=== PATIENT | female | born 1955 | race Caucasian/White ===

== ENCOUNTER → 2017-03-27 | Outpatient (CLI) | payer BC ==
[~2017-03-27] MED LIST: ACIDOPHILUS100 MG PO; ALEN70TA47 PO; ALPR.25T PO; AZIT-21 PO; CLCX200C PO; ESTR0.755 PO; LACTAID9000 UNIT PO; MTX2.5T PO; OMEP20CA12 PO; PROP1TAB77; SCR1T PO; SLMFT1E INH; SMT80CT PO; TRAZ150T42 PO; TRZ50T; [UNRECOGNIZED DRUG - OTHER]; estrogen; ventolin inhaler INH
--- NOTE | 2017-03-27 15:12 | Diagnostic Imaging Report ---
INDICATION: Pain, swelling, and redness status post recent injury. COMPARISON: None. FINDINGS: Three views of the left foot demonstrate no acute fracture or dislocation. There are no focal osseous lesions. There is no soft tissue swelling. There are degenerative changes with mild subluxation of the fourth proximal interphalangeal joint space. Joint spaces are otherwise maintained. No radiopaque foreign bodies are seen. IMPRESSION: 1. No acute fracture or dislocation of the left foot. Dictated by: Dictated on workstation # [id number]
== END ==
LOC: RAD 14:52
PROVIDERS: ATTEND Internal Medicine
DX: M79.672 Pain in left foot (principal)
CPT/HCPCS: 73630

== ENCOUNTER 2017-07-13 14:00 | Observation (INO) | payer BC ==
[~2017-07-13] VITALS: Ht 170.2 cm; Wt 54.9 kg
[2017-07-13] MEDS ORDERED: METH2.5T (14:46)
[2017-07-13] MEDS ORDERED: FOLI1TAB24 PO (14:46)
[2017-07-13] MEDS ORDERED: ALPR0.254 (14:46)
[2017-07-13] MEDS ORDERED: ESTR0.755 (14:46)
[2017-07-13] MEDS ORDERED: OXYC-471 PO (14:46)
[2017-07-13] MEDS ORDERED: TRAZ100T92 PO (14:46)
[2017-07-13] MEDS ORDERED: fentaNYL INJECTION 100 MCG/2 ML AMP IVP STA (15:13)
--- NOTE | 2017-07-13 15:14 | Diagnostic Imaging Report ---
Clinical indication: Patient fell on right shoulder this morning while letting to dog out. Exams: 1: X-ray of the right humerus, 2 views. 2: X-ray of the right shoulder, 3 views. Comparison: X-ray of the right shoulder dated 02/15/2007. Findings: X-ray of the right shoulder and right humerus shows a comminuted impacted fracture of the proximal humeral metaphysis and humeral head region. There is concern for intra-articular extension. There is at least one half shaft width of anterior displacement of the distal fracture fragment. The humeral head is slightly inferior this may be related to joint effusion. There is no other fracture or dislocation seen. There is side plate and screws internally fixing the healed right clavicle. Impression: 1: There is a comminuted intra-articular fracture involving the right proximal humeral head/neck junction region. 2: There is pseudosubluxation of the right glenohumeral joint, likely related to joint effusion. Dictated by: Dictated on workstation # [id number]
--- NOTE | 2017-07-13 15:20 | ED Upper Extremity ---
General Chief Complaint: Upper Extremity Stated Complaint: R ARM/SHOULDER PAIN POSS BREAK Nursing Triage Note: ADM TO ED C/O R SHOULDER PAIN. REPORTS APX 12 HRS AGO WAS BENDING OVER TO FILL DOG BOWEL FELL ON OVER ON R SHOULDER. SWELLING AND BRUSING TO SHOULDER Nursing Sepsis Screen: No Definite Risk History of Present Illness Time seen by provider: 15:05 Initial Comments Patient reports approximately 12 hours ago she was leaning over to get food and water for her dog when she fell forward landing on her right shoulder. She has a previous history of a right clavicle fracture with ORIF in 2006. She denies any head injury or any other complaints of pain related to the fall other than the right shoulder. He has long-standing history of RA and OA. At 09 100 she had 400 mg of ibuprofen and coffee Onset: this morning Pain/Injury Location: right shoulder, right arm (proximal) Method of Injury: fell Modifying Factors: Improves With Pain Medication, Improves With Rest Allergies and Home Medications Allergies Coded Allergies: codeine (Verified Allergy, Unknown, NAUSEA & VOMITING, 03/12/07) hydrocodone (Verified Allergy, Unknown, NAUSEA, 07/13/17) Home Medications Alendronate Sodium 70 Mg Tablet, 70 MG PO weekly, (Reported) 1 TAB WEEKLY ON SATURDAYS Alprazolam 0.25 Mg Tablet, 0.25-0.5 MG PO HS PRN, (Reported) 1-2 TABS PRN ANXIETY Alprazolam 0.25 Mg Tablet, (Reported) Estropipate 0.75 Mg Tablet, 0.625 MG PO DAILY, (Reported) Estropipate 0.75 Mg Tablet, (Reported) Folic Acid 1 Mg Tablet, (Reported) Lactase 9,000 Unit Tab.chew, 9,000 UNIT PO, (Reported) TAKE BEFORE EATING DAIRY Methotrexate 2.5 Mg Tab, 2.5 MG PO Q7D, (Reported) 10 TABS WEEKLY ON SATURDAY Methotrexate Sodium 2.5 Mg Tablet, (Reported) Omeprazole 20 Mg Capsule.dr, 20 MG PO BID, (Reported) BEFORE MEALS Oxycodone HCl/Acetaminophen 1 Each Tablet, (Reported) Simethicone 80 Mg Chew, 80 MG PO NEEDED, (Reported) PRN GAS Trazodone HCl 100 Mg Tablet, (Reported) Trazodone Hcl 150 Mg Tablet, 100 MG PO HS, (Reported) [ventolin inhaler] , 90 MCG INH Q4H PRN, (Reported) 2 puffs q4 prn SHORTNESS OF BREATH Constitutional: no symptoms reported, see HPI Musculoskeletal: see HPI, joint pain, joint swelling, muscle pain, No neck pain Past Mmcfgaj-Bdlyqx-Ptismm Hx Patient Social History Alcohol Use: Occasionally Uses Recreational Drug Use: No Smoking Status: Current Everyday Smoker (1 pack per day) Recent Foreign Travel: No Contact w/Someone Who Travel: No Recent Infectious Disease Expo: No Recent Hopitalizations: Yes Surgeries History of Surgeries: Yes (hysterectomy 98,[id number]) Respiratory History of Respiratory Disorde: Yes Cardiovascular History of Cardiac Disorders: Yes Neurological History of Neurological Disord: No Reproductive System Hx Reproductive Disorders: No Gastrointestinal History of Gastrointestinal Di: No Musculoskeletal History of Musculoskeletal Dis: Yes (herniated disks) Endocrine History of Endocrine Disorders: No Psychosocial History of Psychiatric Problem: No Blood Transfusions History of Blood Disorders: No Reviewed Nursing Assessment Reviewed/Agree w Nursing PMH: Yes Physical Exam Vital Signs Vital Sign - Last 12Hours 07/13/17 14:21 Temp 97.0 Pulse 83 Resp 18 B/P (MAP) 142/59 Pulse Ox 96 O2 Delivery Room Air Capillary Refill : Less Than 3 Seconds General Appearance: WD/WN, no apparent distress HEENT: PERRL/EOMI, normal ENT inspection, TMs normal, pharynx normal Neck: non-tender, full range of motion, supple, normal inspection Cardiovascular: normal peripheral pulses, regular rate, rhythm, no edema, no murmur Respiratory: chest non-tender, lungs clear Gastrointestinal: normal bowel sounds, non tender, soft, no organomegaly Back: normal inspection, no CVA tenderness, no vertebral tenderness Shoulder: bone tenderness (proximal right shoulder and humerus), deformity, ecchymosis, limited ROM, pain, soft tissue tenderness, swelling Elbow/Forearm: normal inspection, non-tender, Right Hand: normal inspection, non-tender, Right Neurologic/Psychiatric: no motor/sensory deficits, alert, normal mood/affect, oriented x 3 Skin: normal color, warm/dry Comments Neurovascular status intact right upper extremity symmetric with the left. Progress/Results/Core Measures Results/Orders My Orders Orders - BEATA GILLIS Shoulder, Right, 3 Views (07/13/17 14:29) Humerus, Right, 2 Views (07/13/17 14:29) Saline Lock/Iv-Start (07/13/17 15:13) Fentanyl Injection (Sublimaze Injection (07/13/17 15:13) Alprazolam Tablet (Xanax Tablet) (07/13/17 16:10) Vital Signs/I&O Vital Sign - Last 12Hours 07/13/17 14:21 Temp 97.0 Pulse 83 Resp 18 B/P (MAP) 142/59 Pulse Ox 96 O2 Delivery Room Air Blood Pressure Mean: 86 Progress Note : Progress Note 1505 reviewed x-ray results with the patient and her boyfriend, will consult orthopedics and make plans from there. Fentanyl 50 g IV for pain. [address] Brower, reviewed x-ray and recommended conservative treatment. If she needs surgery in the future would be a head replacement on a elected basis. Recommended admission for pain control. [address] Byod, agreed to accept patient for observation admission. Agent reporting anxiety, Xanax 0.5 mg by mouth Diagnostic Imaging Diagonstic Imaging: Xray Plain Films/CT/US/NM/MRI: other (humerus and shoulder, right) Comments NAME: JOSE MIGUEL CURRAN [facility] REC#: [id number] PT STATUS: REG ER : 1955 PHYSICIAN: BEATA GILLIS ADMIT DATE: 07/13/17/ER Signed Date of Exam: 07/13/17 HUMERUS, RIGHT, 2 VIEWS Clinical indication: Patient fell on right shoulder this morning while letting to dog out. Exams: 1: X-ray of the right humerus, 2 views. 2: X-ray of the right shoulder, 3 views. Comparison: X-ray of the right shoulder dated 02/15/2007. Findings: X-ray of the right shoulder and right humerus shows a comminuted impacted fracture of the proximal humeral metaphysis and humeral head region. There is concern for intra-articular extension. There is at least one half shaft width of anterior displacement of the distal fracture fragment. The humeral head is slightly inferior this may be related to joint effusion. There is no other fracture or dislocation seen. There is side plate and screws internally fixing the healed right clavicle. Impression: 1: There is a comminuted intra-articular fracture involving the right proximal humeral head/neck junction region. 2: There is pseudosubluxation of the right glenohumeral joint, likely related to joint effusion. Dictated by: Dictated on workstation # [id number] Dict: 07/13/17 1504 Trans: 07/13/17 1512 Interpreted by: JANE DON MD Electronically signed by: JANE DON MD 07/13/17 1512 Reviewed: Reviewed by Me Departure Impression Impression: Primary Impression: Proximal humerus fracture Qualified Codes: S42.291A - Other displaced fracture of upper end of right humerus, initial encounter for closed fracture Additional Impression: Pain in right shoulder Qualified Codes: M25.511 - Pain in right shoulder Disposition: ADMITTED INPATIENT Condition: Stable Admissions Decision to Admit Reason: Admit from ER (General) Decision to Admit/Date: Jul 13, 2017 Time/Decision to Admit Time: 15:25 Departure-Patient Inst. Referrals: VIRGIE STOKES MD (PCP/Family) Primary Care Physician Copy Copies To 1: VIRGIE STOKES MD, AMY ARNP Jul 13, 2017 15:20
[2017-07-13] MEDS ORDERED: ALPRAZolam 0.5 MG (XANAX) TAB PO STA (16:10)
[2017-07-13 16:59] VITALS: BP 142/59
[2017-07-13] MEDS ORDERED: ONDANSETRON 4 MG/2 ML (SDV) Z0FRAN IV PRN (17:00)
[2017-07-13] MEDS ORDERED: CATHETER FLUSH 10 ML SYR IV PRN (17:00)
[2017-07-13] MEDS: fentaNYL INJECTION 100 MCG/2 ML AMP IV PRN (17:15)
[2017-07-13] MEDS: NS IV 1000 ML 1,000 ML IV SCH (17:15)
[2017-07-13] MEDS ORDERED: RT-ALBUTEROL SULF 2.5 MG/3 ML PRE-MIX VIAL IH PRN (17:15)
[2017-07-13] MEDS ORDERED: PRED5TAB PO (17:43)
[2017-07-13] MEDS ORDERED: DULO60CA6 PO (17:43)
[2017-07-13] MEDS ORDERED: RT-ALBUINH IH (17:43)
[2017-07-13] MEDS ORDERED: GABA-488 PO (17:46)
[2017-07-13 19:03] VITALS: BP 138/63
--- NOTE | 2017-07-13 19:07 | Consultation ---
History of Present Illness History of Present Illness Patient Consulted On(misty/time) 07/13/17 18:56 Date Seen by Provider: Jul 13, 2017 Time Seen by Provider: 18:56 Reason for Visit: Right shoulder humeral head fracture. History of Present Illness She was getting water for her dogs at 2am when she fell forward onto her shoulder. She could not move for 2 hours, she reports. She arrived at the ED earlier this afternoon. Allergies and Home Medications Allergies Coded Allergies: Penicillins (Verified Allergy, Unknown, 07/13/17) codeine (Verified Allergy, Unknown, NAUSEA & VOMITING, 03/12/07) hydrocodone (Verified Allergy, Unknown, NAUSEA, 07/13/17) Home Medications Albuterol Sulfate 1 Puff Puff, 1 INHALER INH, (Reported) Alendronate Sodium 70 Mg Tablet, 70 MG PO weekly, (Reported) 1 TAB WEEKLY ON SATURDAYS Alprazolam 0.25 Mg Tablet, 0.25-0.5 MG PO HS PRN, (Reported) 1-2 TABS PRN ANXIETY Duloxetine HCl 60 Mg Capsule.dr, 60 MG PO DAILY, (Reported) Estropipate 0.75 Mg Tablet, 0.625 MG PO DAILY, (Reported) Folic Acid 1 Mg Tablet, 1 MG PO DAILY, (Reported) Gabapentin 300 Mg Capsule, 300 MG PO TID, (Reported) Lactase 9,000 Unit Tab.chew, 9,000 UNIT PO, (Reported) TAKE BEFORE EATING DAIRY Methotrexate 2.5 Mg Tab, 2.5 MG PO Q7D, (Reported) 10 TABS WEEKLY ON SATURDAY Omeprazole 20 Mg Capsule.dr, 20 MG PO BID, (Reported) BEFORE MEALS Oxycodone HCl/Acetaminophen 1 Each Tablet, (Reported) Prednisone 5 Mg Tablet, 10 MG PO DAILY, (Reported) Simethicone 80 Mg Chew, 80 MG PO NEEDED, (Reported) PRN GAS Trazodone HCl 100 Mg Tablet, 100 MG PO DAILY, (Reported) [ventolin inhaler] , 90 MCG INH Q4H PRN, (Reported) 2 puffs q4 prn SHORTNESS OF BREATH Past Iknlcxg-Dunqli-Iwvikp Hx Patient Social History Alcohol Use: Occasionally Uses Alcohol Beverage of Choice: Beer Recreational Drug Use: No Smoking Status: Current Everyday Smoker Type Used: Cigarettes Recent Foreign Travel: No Contact w/Someone Who Travel: No Recent Infectious Disease Expo: No Recent Hopitalizations: Yes Surgeries History of Surgeries: Yes (hysterectomy 98,appy73) Respiratory History of Respiratory Disorde: Yes Respiratory Disorders: COPD Cardiovascular History of Cardiac Disorders: Yes Neurological History of Neurological Disord: No Reproductive System Hx Reproductive Disorders: No Gastrointestinal History of Gastrointestinal Di: No Musculoskeletal History of Musculoskeletal Dis: Yes (herniated disks) Endocrine History of Endocrine Disorders: No Psychosocial History of Psychiatric Problem: No Blood Transfusions History of Blood Disorders: No Reviewed Nursing Assessment Reviewed/Agree w Nursing PMH: Yes Family Medical History Family Medial History: Neoplasm G8 BROTHER Physical Exam-General Problems Physical Exam Vital Signs Vital Sign - Last 12Hours 07/13/17 07/13/17 14:21 16:59 Temp 97.0 Pulse 83 Resp 18 B/P (MAP) 142/59 Pulse Ox 96 O2 Delivery Room Air FiO2 21 Capillary Refill : Less Than 3 SecondsLess Than 3 Seconds Assessment/Plan Assessment/Plan Admission Diagnosis/Plan EXAM- ORTHOPEDIC: Alert and oriented, in pain with secondary signs of moderatly severe pain that is aggravated by any motion. Large bruise anterior right upper arm. grossly neuro vascular intact R hand and wrist. X-RAY: Impacted head of right humerus, adequately stable pattern. DIAGNOSIS: Closed fracture proximal right humerus interarticular displaced PLAN: 1. Conservative treatment for now. A majority of this pattern will do adequately without surgery. Some will go on to AVN and need replacement surgery. 2. Pain control - likely to take 2 - 3 days. Clinical Quality Measures DVT/VTE Risk/Contraindication: Risk Factor Score Per Nursin RFS Level Per Nursing on Admit: 4+=Very High SANDI SUERO MD Jul 13, 2017 7:07 pm
[2017-07-13] MEDS: oxyCODONE/APAP 7.5-325 MG (PERCOCET 7.5) TABLET PO PRN (19:43)
[2017-07-13] MEDS: ALPRAZolam 0.25 MG (XANAX) TAB PO PRN (21:03)
[2017-07-13] MEDS: traZODone 100 MG (DESYREL) TAB PO SCH (21:03)
[2017-07-13] MEDS ORDERED: NICOTINE 21 MG (NICODERM) PATCH ONE (21:26)
[2017-07-14 00:58] VITALS: BP 135/62
[2017-07-14] MEDS: oxyCODONE/APAP 7.5-325 MG (PERCOCET 7.5) TABLET PO PRN ×7 (01:31→18:08)
[2017-07-14 04:43] VITALS: BP 127/60
[2017-07-14] MEDS: NS IV 1000 ML 1,000 ML IV SCH ×2 (05:39→18:08)
[2017-07-14 08:00] VITALS: BP 181/81
[2017-07-14] MEDS: NICOTINE 21 MG (NICODERM) PATCH TD SCH (08:15)
[2017-07-14] MEDS: ALPRAZolam 0.25 MG (XANAX) TAB PO PRN ×2 (08:20→16:12)
[2017-07-14] MEDS ORDERED: DULoxetine 30 MG (CYMBALTA) CAP PO SCH (09:00)
[2017-07-14] MEDS: fentaNYL INJECTION 100 MCG/2 ML AMP IV PRN (09:09)
--- NOTE | 2017-07-14 11:17 | History & Physical-Hospitalist ---
HPI History of Present Illness: HPI/Chief Complaint this is a 61-year-old white female who was out watering her dog at 2 o'clock in the morning when she tipped over following striking her right shoulder. She lives alone and was unable to get up by herself for 2 hours. she presented to the emergency room where she is found to have a fracture of the head of the humerus. she has been seen by orthopedic who recommends conservative treatment with slinging for 6 weeks. This may result in avascular necrosis of the humeral head in which case she would require joint replacement. Currently she continues to have severe pain of her right shoulder and feels unable to go home today but feels that she can probably by tomorrow. 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) Alcohol Use: Occasionally Uses Alcohol Beverage of Choice: Beer Recreational Drug Use: No Smoking Status: Current Everyday Smoker Type Used: Cigarettes Physical Abuse Screen: No Sexual Abuse: No Recent Foreign Travel: No Contact w/other who traveled: No Recent Hopitalizations: Yes Recent Infectious Disease Expo: No Surgeries Yes (hysterectomy 98,appy73) Respiratory Yes COPD Cardiovascular Yes Neurological No Reproductive System Hx Reproductive Disorders: No Gastrointestinal No Musculoskeletal Yes (herniated disks) Rheumatoid Arthritis Endocrine History of Endocrine Disorders: No Psychosocial History of Psychiatric Problem: No Blood Transfusions History of Blood Disorders: No Reviewed Nursing Assessment Reviewed/Agree w Nursing PMH: Yes Family Medical History Significant Family History: Heart Disease, Cancer (esophagus) Family Hx: Neoplasm G8 BROTHER Review of Systems Constitutional: no symptoms reported EENTM: no symptoms reported Respiratory: dyspnea on exertion Cardiovascular: no symptoms reported Gastrointestinal: no symptoms reported Genitourinary: no symptoms reported Musculoskeletal: joint pain, muscle pain Skin: other (ecchymosis) Physical Exam Physical Exam Vital Signs Vital Sign - Last 12Hours 07/13/17 07/13/17 14:21 16:59 Temp 97.0 Pulse 83 Resp 18 B/P (MAP) 142/59 Pulse Ox 96 O2 Delivery Room Air FiO2 21 Capillary Refill : Less Than 3 SecondsLess Than 3 Seconds General Appearance: Mild Distress HEENT: Other (edentulous) Neck: Limited Range of Motion Respiratory: Lungs Clear, Normal Breath Sounds, No Accessory Muscle Use, No Respiratory Distress, Crackles (scattered) Cardiovascular: Regular Rate, Rhythm, No Gallop, No Murmur Gastrointestinal: Soft Extremity: Other (ecchymosis and swelling in the right shoulder with very limited range of motion 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 comminuted intra-articular fracture involving the right proximal humeral head/neck junction region. 2. poor pain control 3. Rheumatoid arthritis 4. COPD and tobaccoism we'll drapery counselor We'll continue 24-hour more observation because of the high degree of pain the patient is having Copy Copies To 1: VIRGIE STOKES MD Clinical Quality Measures DVT/VTE Risk/Contraindication: Risk Factor Score Per Nursin RFS Level Per Nursing on Admit: 4+=Very High YOSELYN COBURN MD Jul 14, 2017 11:17
[2017-07-14] MEDS ORDERED: RT-ALBUTEROL HFA (VENTOLIN) PER PUFF IH SCH (11:30)
[2017-07-14] MEDS ORDERED: ALPRAZolam 0.25 MG (XANAX) TAB PO PRN (11:30)
[2017-07-14] MEDS ORDERED: VENTOLIN 90 MCG INH PRN (11:30)
[2017-07-14 12:00] VITALS: BP 181/81
[2017-07-14] MEDS: GABAPENTIN 300 MG (NEURONTIN) CAP PO SCH ×2 (13:42→20:08)
[2017-07-14] MEDS: SIMETHICONE 80 MG (MYLICON) CHEW PO SCH (13:52)
[2017-07-14 16:45] VITALS: BP 153/71
--- NOTE | 2017-07-14 18:24 | Progress Note-Standard ---
Standard Progress Note Progress Notes/Assess & Plan Date Seen by Provider: Jul 14, 2017 Time Seen by Provider: 18:22 Progress/Assessment & Plan S- Still severe pain especially with motion A- Post fracture day one, Right proximal humerus head impaction P- Con't Phy Therapy and Occ Med. Work towards fdc for a week or two. OK D/C to home tomorrow as far as ortho is concerned. Final Diagnosis Post fracture day one, Right proximal humerus head impaction SANDI SUERO MD Jul 14, 2017 6:24 pm
[2017-07-14] MEDS ORDERED: oxyCODONE/APAP 7.5-325 MG (PERCOCET 7.5) TABLET PO PRN (19:30)
[2017-07-14] MEDS: PANTOPRAZOLE 20 MG TABLET (PROTONIX) PO SCH (20:08)
[2017-07-14] MEDS: traZODone 100 MG (DESYREL) TAB PO SCH (20:08)
[2017-07-14] MEDS: oxyCODONE/APAP 7.5-325 MG (PERCOCET 7.5) TABLET PO SCH (22:21)
[2017-07-14 23:35] VITALS: BP 131/63
[2017-07-15] MEDS: ALPRAZolam 0.25 MG (XANAX) TAB PO PRN ×2 (00:32→08:22)
[2017-07-15] MEDS: oxyCODONE/APAP 7.5-325 MG (PERCOCET 7.5) TABLET PO SCH ×4 (02:03→13:39)
[2017-07-15 08:00] VITALS: BP 157/59
[2017-07-15] MEDS: GABAPENTIN 300 MG (NEURONTIN) CAP PO SCH ×2 (08:22→13:48)
[2017-07-15] MEDS: NICOTINE 21 MG (NICODERM) PATCH TD SCH (08:22)
[2017-07-15] MEDS: PANTOPRAZOLE 20 MG TABLET (PROTONIX) PO SCH (08:22)
[2017-07-15] MEDS: SIMETHICONE 80 MG (MYLICON) CHEW PO SCH (08:23)
[2017-07-15] MEDS ORDERED: DULoxetine 30 MG (CYMBALTA) CAP PO SCH (09:00)
[2017-07-15] MEDS ORDERED: predniSONE 10 MG TAB PO SCH (09:00)
[2017-07-15] MEDS ORDERED: FOLIC ACID 1 MG TAB PO SCH (09:00)
[2017-07-15] MEDS ORDERED: traZODone 100 MG (DESYREL) TAB PO SCH (09:00)
[2017-07-15] MEDS: NS IV 1000 ML 1,000 ML IV SCH (10:11)
--- NOTE | 2017-07-15 10:57 | Discharge Summary-Hospitalist ---
Diagnosis/Chief Complaint Date of Admission Jul 13, 2017 at 15:50 Date of Discharge 07/15/17 Discharge Date: Jul 15, 2017 Admission Diagnosis 1. comminuted intra-articular fracture involving the right proximal humeral head/neck junction region. 2. poor pain control 3. Rheumatoid arthritis 4. COPD and tobaccoism we'll cruise counselor Discharge Diagnosis As above Discharge Summary Procedures None Consultations Orthopedic Surgery: Dr Brower Discharge Physical Examination Allergies: Coded Allergies: Penicillins (Verified Allergy, Unknown, 07/13/17) codeine (Verified Allergy, Unknown, NAUSEA & VOMITING, 03/12/07) hydrocodone (Verified Allergy, Unknown, NAUSEA, 07/13/17) Vitals & I&Os Vital Signs Date Time Temp Pulse Resp B/P (MAP) Pulse Ox O2 Delivery O2 Flow Rate FiO2 07/15/17 09:00 98 Room Air 07/15/17 08:00 98.2 74 20 157/59 07/13/17 16:59 21 General Appearance: Alert, Oriented X3, Cooperative, No Acute Distress Respiratory: Clear to Auscultation Cardiovascular: Regular Rate Extremities: Other (RUE with significan ecchymosis and nonpitting edema, NVI, string radial pulse, Cap refill <2s) Skin: Other (ecchymosis over most of RUE as above) Neuro: Normal Speech, Sensation Intact Psych/Mental Status: Mental Status NL Hospital Course [id number] who presented to the ER following a fall at home shoulder to have comminuted intra-articular fracture involving the right proximal humeral head/ neck junction region. She was evaluated by Orthopedic surgery who recommended conservative treatment at this time with a sling. She was unable to obtain adequate pain control on oral medications so was admitted for pain management. In the last 24 hours she has tolerated only oral pain meds and expressed desire to go home today. Discussion & Recommendations Has follow up with her PCP, Dr. Stokes, scheduled on 07/17/17. Will follow up with him then. Will follow up with orthopedic surgery in 6 weeks. Discharge Home Medications: Active Scripts Active Oxycodon-Acetaminophen 7.5-325 (Oxycodone HCl/Acetaminophen) 1 Each Tablet 1 Each PO Q4H Reported Gabapentin 300 Mg Capsule 300 Mg PO TID Cymbalta (Duloxetine HCl) 60 Mg Capsule.dr 60 Mg PO DAILY Proair Hfa (Albuterol Sulfate) 1 Puff Puff 2 Puff IH Q4H PRN Prednisone 5 Mg Tablet 10 Mg PO DAILY Trazodone HCl 100 Mg Tablet 100 Mg PO HS Folic Acid 1 Mg Tablet 1 Mg PO DAILY Mylicon Chews (Simethicone) 80 Mg Chew 80 Mg PO NEEDED PRN GAS Lactaid (Lactase) 9,000 Unit Tab.chew 9,000 Unit PO TAKE BEFORE EATING DAIRY Omeprazole 20 Mg Capsule.dr 20 Mg PO BID BEFORE MEALS Methotrexate 2.5 Mg Tab 2.5 Mg PO Q7D 10 TABS WEEKLY ON SATURDAY Alendronate Sodium 70 Mg Tablet 70 Mg PO WEEKLY 1 TAB WEEKLY ON SATURDAYS Estropipate 0.75 Mg Tablet 0.625 Mg PO DAILY Xanax (Alprazolam) 0.25 Mg Tablet 0.25-0.5 Mg PO HS PRN 1-2 TABS PRN ANXIETY Condition at discharge Stable, improved Instructions to patient/family Please see electonic discharge instructions given to patient. Clinical Quality Measures DVT/VTE Risk/Contraindication: Risk Factor Score Per Nursin RFS Level Per Nursing on Admit: 4+=Very High Copy Copies To 1: VIRGIE STOKES MD, KATELYN M MD Jul 15, 2017 10:57
[2017-07-15] MEDS ORDERED: OXYC-464 PO (11:00)
--- NOTE | 2017-07-15 14:26 | Progress Note-Standard ---
Standard Progress Note Progress Notes/Assess & Plan Date Seen by Provider: Jul 15, 2017 Time Seen by Provider: 14:23 Progress/Assessment & Plan S- Pain is much better if she doesn't move left shoulder. A- Post fracture day two, Right proximal humerus head impaction. Much more comfortable. Ready for discharge. P- Con't Phy Therapy and Occ Med. Work towards assisted for a week or two. OK D/C to home today as far as ortho is concerned. Final Diagnosis Post fracture day two, Right proximal humerus head impaction. Much more comfortable. Ready for discharge. SANDI SUERO MD Jul 15, 2017 2:26 pm
[2017-07-15 15:30] VITALS: BP 128/78
== END 2017-07-15 11:04 | disposition home or self-care (01) ==
LOC: EDUNIT# 14:00 → ER 14:02 → 4TH 15:50 → UNDOADMOB 15:50 → 4TH 16:40 → UNDODISOB 07-15 15:25
PROVIDERS: ADMIT Internal Medicine; ATTEND Internal Medicine
DX: S42.351A Displaced comminuted fracture of shaft of humerus, right arm, initial encounter for closed fracture (principal); J44.9 Chronic obstructive pulmonary disease, unspecified; M06.9 Rheumatoid arthritis, unspecified; F17.210 Nicotine dependence, cigarettes, uncomplicated; Z79.899 Other long term (current) drug therapy; W01.0XXA Fall on same level from slipping, tripping and stumbling without subsequent striking against object, initial encounter; Y92.009 Unspecified place in unspecified non-institutional (private) residence as the place of occurrence of the external cause; Y99.8 Other external cause status
CPT/HCPCS: 73030; 73060; 94760; 96374

== ENCOUNTER 2017-08-05 09:16 | Outpatient (RCR) | payer BC ==
[~2017-08-05 09:16] MED LIST changes: +ALPR0.254; +DULO60CA6 PO; +ESTR0.755; +FOLI1TAB24 PO; +GABA-488 PO; +METH2.5T; +OXYC-464 PO; +OXYC-471 PO; +PRED5TAB PO; +RT-ALBUINH IH; +TRAZ100T92 PO
== END 2017-08-10 | disposition home or self-care (01) ==
PROVIDERS: ATTEND Physician Assistant
DX: S42.291D Other displaced fracture of upper end of right humerus, subsequent encounter for fracture with routine healing (principal); Z96.611 Presence of right artificial shoulder joint; X58.XXXD Exposure to other specified factors, subsequent encounter; Y99.8 Other external cause status

== ENCOUNTER 2017-11-07 14:57 | Outpatient (RCR) | payer BC, OTHER | END 2017-11-07 16:02 | disposition home or self-care (01) | PROVIDERS: ATTEND Physician Assistant | DX: Z47.1 Aftercare following joint replacement surgery (principal); Z96.611 Presence of right artificial shoulder joint ==

== ENCOUNTER → 2017-11-07 | Outpatient (CLI) | payer BC | LOC: RAD 11:39 | PROVIDERS: ATTEND Nurse Practitioner | DX: Z12.31 Encounter for screening mammogram for malignant neoplasm of breast (principal) | CPT/HCPCS: 77067 ==

== ENCOUNTER → 2017-11-20 | Outpatient (CLI) | payer SELFPAY ==
[2017-11-20 11:09] LABS: BUN/CREATININE RATIO 11; CALCIUM 9.7 MG/DL (8.5-10.1); CARBON DIOXIDE 29 MMOL/L (21-32); CHLORIDE 100 MMOL/L (98-107); CREATININE SERUM 0.61 MG/DL (0.60-1.30); GFR ESTIMATED > 60; GLUCOSE 107 MG/DL (70-105); POTASSIUM 4.9 MMOL/L (3.6-5.0); SODIUM 139 MMOL/L (135-145)
== END ==
LOC: LAB 10:37
PROVIDERS: ATTEND Internal Medicine
DX: E87.6 Hypokalemia (principal)
CPT/HCPCS: 36415; 80048

== ENCOUNTER → 2018-02-24 | Outpatient (CLI) | payer OTHER ==
[~2018-02-24] MED LIST changes: +RT-ALBUTEROL SULF 2.5 MG/3 ML PRE-MIX VIAL INH ONE; +TRAZ-190 PO; -TRAZ100T92 PO
== END ==
LOC: RT 12:58
PROVIDERS: ATTEND Neuromusculoskeletal Medicine, Sports Medicine
DX: Z02.71 Encounter for disability determination (principal)
CPT/HCPCS: 94060

== ENCOUNTER → 2018-12-30 | Outpatient (CLI) | payer SELFPAY ==
[~2018-12-30] MED LIST changes: -ACIDOPHILUS100 MG PO; -ALEN70TA47 PO; -ALPR.25T PO; -ALPR0.254; -AZIT-21 PO; +CATHETER FLUSH 10 ML SYR IV PRN; -CLCX200C PO; -DULO60CA6 PO; -ESTR0.755; -ESTR0.755 PO; -FOLI1TAB24 PO; -GABA-488 PO; -LACTAID9000 UNIT PO; -METH2.5T; -MTX2.5T PO; -OMEP20CA12 PO; -OXYC-464 PO; -OXYC-471 PO; -PRED5TAB PO; -PROP1TAB77; +REGADENOSON 0.4 MG/5 ML SYR (LEXISCAN) IV ONE; -RT-ALBUINH IH; -RT-ALBUTEROL SULF 2.5 MG/3 ML PRE-MIX VIAL INH ONE; -SCR1T PO; -SLMFT1E INH; -SMT80CT PO; -TRAZ-190 PO; -TRAZ150T42 PO; -TRZ50T; -[UNRECOGNIZED DRUG - OTHER]; -estrogen; -ventolin inhaler INH
[2018-12-30 09:08] VITALS: BP 154/89
== END ==
LOC: CARD 07:43
PROVIDERS: ATTEND Internal Medicine Cardiovascular Disease
DX: I10 Essential (primary) hypertension (principal); R06.02 Shortness of breath; Z72.0 Tobacco use
CPT/HCPCS: 78452; 93017

== ENCOUNTER → 2019-11-13 | Outpatient (CLI) | payer OTHER ==
[~2019-11-13] MED LIST changes: +ACIDOPHILUS100 MG PO; +ALEN70TA47 PO; +ALPR.25T PO; +ALPR0.254; +AZIT-21 PO; -CATHETER FLUSH 10 ML SYR IV PRN; +CLCX200C PO; +DULO60CA6 PO; +ESTR0.755; +ESTR0.755 PO; +FOLI1TAB24 PO; +GABA-488 PO; +LACTAID9000 UNIT PO; +MTX2.5T; +MTX2.5T PO; +OMEP20CA12 PO; +OXYC-464 PO; +OXYC-471 PO; +PRED5TAB PO; +PROP1TAB77; -REGADENOSON 0.4 MG/5 ML SYR (LEXISCAN) IV ONE; +RT-ALBUINH IH; +SCR1T PO; +SLMFT1E INH; +SMT80CT PO; +TRAZ-190 PO; +TRAZ150T42 PO; +TRZ50T; +[UNRECOGNIZED DRUG - OTHER]; +estrogen; +ventolin inhaler INH
--- NOTE | 2019-11-16 10:47 | Diagnostic Imaging Report ---
INDICATION: Routine screening. COMPARISON: 11/07/2017 and 11/09/2016. TECHNIQUE: 2D and 3D bilateral screening mammography was performed with CAD. FINDINGS: Scattered fibroglandular densities are identified bilaterally. Occasional benign calcifications are noted. No dominant mass or malignant appearing microcalcifications are seen. The axillae are unremarkable. IMPRESSION: No mammographic features suspicious for malignancy are identified. ACR BI-RADS Category 2: Benign findings. Result letter will be mailed to the patient. Note: At least 10% of breast cancer is not imaged by mammography. Dictated by: Dictated on workstation # [id number]
== END ==
LOC: RAD 14:31
PROVIDERS: ATTEND Nurse Practitioner
DX: Z12.31 Encounter for screening mammogram for malignant neoplasm of breast (principal)
CPT/HCPCS: 77067

== ENCOUNTER → 2022-09-17 | Outpatient (CLI) | payer MEDICARE ==
[~2022-09-17] MED LIST changes: +ALBU8.5H6 IH; +ALPR.25T; -ALPR0.254; -DULO60CA6 PO; +DULO60CA7 PO; -FOLI1TAB24 PO; +FOLI1TAB33 PO; -OXYC-464 PO; -OXYC-471 PO; +OXYC1TAB11 PO; +OXYC1TAB15 PO; -RT-ALBUINH IH; -TRAZ-190 PO; +TRAZ-227 PO
--- NOTE | 2022-09-18 15:29 | Diagnostic Imaging Report ---
3D bilateral screening mammogram. The current study was also evaluated with a Computed Aided Detection (CAD) system. COMPARISON: This study was compared to the prior exams of 11/13/2019 and 11/07/2017. There are no current complaints. FINDINGS: The fibroglandular tissue in both breasts is heterogeneously dense. This does limit the sensitivity of this exam. When compared to the previous study there does not appear to have been any significant change. There is no primary or secondary sign of malignancy noted. IMPRESSION: 1. There is no evidence for malignancy. 2. The patient should have her annual bilateral screening mammogram on schedule in September 2023. BI-RADS CATEGORY: 1 NEGATIVE ACR BI-RADS Category 1: Negative. Result letter will be mailed to the patient. Note: At least 10% of breast cancer is not imaged by mammography. Dictated by: Dictated on workstation # [id number]
== END ==
LOC: RAD 15:30
PROVIDERS: ATTEND Nurse Practitioner Family
DX: Z12.31 Encounter for screening mammogram for malignant neoplasm of breast (principal)
CPT/HCPCS: 77063; 77067

== ENCOUNTER 2023-01-26 16:19 | Emergency (ER) | payer MEDICARE ==
[~2023-01-26] VITALS: Ht 170.2 cm; Wt 52.9 kg
--- NOTE | 2023-01-26 16:42 | ED Upper Extremity ---
General Chief Complaint: Upper Extremity Stated Complaint: FALL/LEFT ARM INJURY Nursing Triage Note: PT AMB TO [facility] WITH COMPLAINT OF LEFT ARM PAIN. STATES SHE FELL SATURDAY IN NEIGHBORS YARD. STATES SHE WAS UNABLE TO FIND A RIDE OUT HERE UNTIL TODAY. PTS LEFT ARM IS BRUISED AND SWOLLEN Source: patient Exam Limitations: no limitations (IVELISSE SCHAFER) History of Present Illness Date Seen by Provider: Jan 26, 2023 Time Seen by Provider: 16:39 Initial Comments Patient is a 67-year-old female who presents ED with left arm pain with bruising. She states that she fell evening. She states it was raining outside and she was walking around the house when she slipped on a divot from the water run off from the house landing directly on her left shoulder. She had immediate pain with some bruising. She states she has not been able to move her left shoulder since the fall. Has been taking oxycodone daily. She noted b ruising that developed immediately afterward and has migrated down to the left elbow. She denies hitting her head or loss of consciousness, chest pain, shortness of breath, middle lower back pain secondary to the fall. She does take oxycodone for pain. She states she is having trouble moving her left arm. History of right shoulder hemiarthroplasty. Denies any distal numbness and tingling. Pain with any type of movement of the elbow and left shoulder. Denies neck pain, back pain, vomiting, diarrhea, abdominal pain, distal numbness and tingling (IVELISSE SCHAFER) Allergies and Home Medications Allergies Coded Allergies: Penicillins (Verified Allergy, Unknown, 07/13/17) codeine (Verified Allergy, Unknown, NAUSEA & VOMITING, 03/12/07) hydrocodone (Verified Allergy, Unknown, NAUSEA, 07/13/17) Patient Home Medication List Home Medication List Reviewed: Yes (IVELISSE SCHAFER) Albuterol Sulfate (Ventolin Hfa) 1 Puff Puff, 2 PUFF IH Q4H PRN for SHORTNESS OF BREATH, (Reported) Entered as Reported by: ADOLFO CELAYA on 07/13/17 8219 Alendronate Sodium (Alendronate Sodium) 70 Mg Tablet, 70 MG PO weekly, (Reported) Entered as Reported by: JOYCE WOODWARD on 12/07/11 1318 Alprazolam (Xanax) 0.25 Mg Tablet, 0.25-0.5 MG PO HS PRN, (Reported) Entered as Reported by: JOYCE WOODWARD on 12/07/11 1318 Duloxetine HCl (Cymbalta) 60 Mg Capsule.dr, 60 MG PO DAILY, (Reported) Entered as Reported by: ADOLFO CELAYA on 07/13/17 1743 Estropipate (Estropipate) 0.75 Mg Tablet, 0.625 MG PO DAILY, (Reported) Entered as Reported by: JOYCE WOODWARD on 12/07/11 1318 Folic Acid (Folic Acid) 1 Mg Tablet, 1 MG PO DAILY, (Reported) Entered as Reported by: STACIA EMMANUEL on 07/13/17 1446 Gabapentin (Gabapentin) 300 Mg Capsule, 300 MG PO TID, (Reported) Entered as Reported by: ADOLFO CELAYA on 07/13/17 1746 Lactase (Lactaid) 9,000 Unit Tab.chew, 9,000 UNIT PO, (Reported) Entered as Reported by: KEVIN FENG on 10/20/12 0209 Methotrexate (Methotrexate) 2.5 Mg Tab, 2.5 MG PO Q7D, (Reported) Entered as Reported by: JOYCE WOODWARD on 12/07/11 1318 Omeprazole (Omeprazole) 20 Mg Capsule.dr, 20 MG PO BID, (Reported) Entered as Reported by: JOYCE WOODWARD on 12/07/11 1502 Oxycodone HCl/Acetaminophen (Oxycodon-Acetaminophen 7.5-325) 1 Each Tablet, 1 EACH PO Q4H Prescribed by: JOHN RAMOS on 07/15/17 1100 Oxycodone HCl/Acetaminophen (Oxycodone-Acetaminophen 5-325) 5 Mg-325 Mg Tablet, 1 EACH PO Q4H PRN for PAIN-SEVERE Prescribed by: KAM BURGER on 01/26/23 1734 Prednisone (Prednisone) 5 Mg Tablet, 10 MG PO DAILY, (Reported) Entered as Reported by: ADOLFO CELAYA on 07/13/17 1743 Simethicone (Mylicon Chews) 80 Mg Chew, 80 MG PO NEEDED, (Reported) Entered as Reported by: KEVIN FENG on 10/20/12 0209 Tramadol HCl (Tramadol HCl) 50 Mg Tablet, 50 MG PO Q6H PRN for PAIN-MODERATE (5- 7) Prescribed by: KATLIN TA on 01/27/23 0226 Trazodone HCl (Trazodone HCl) 100 Mg Tablet, 100 MG PO HS, (Reported) Entered as Reported by: STACIA EMMANUEL on 07/13/17 1446 Review of Systems Constitutional: No chills, No diaphoresis EENTM: No hearing loss, No blurred vision, No mouth pain, No mouth swelling, No throat pain, No throat swelling Respiratory: No cough Cardiovascular: No chest pain Gastrointestinal: No abdominal pain, No diarrhea, No nausea, No vomiting Genitourinary: No decreased output, No discharge Musculoskeletal: No back pain; joint pain, joint swelling, muscle pain Skin: other (Ecchymosis left arm) (IVELISSE SCHAFER) All Other Systems Reviewed Negative Unless Noted: Yes (IVELISSE SCHAFER) Past Xfrblcw-Jvgadd-Pbbmkc Hx Patient Social History Tobacco Use?: Yes Tobacco type used: Cigarettes Smoking Status: Current Everyday Smoker Use of E-Cig and/or Vaping dev: No Substance use?: No Alcohol Use?: Yes Alcohol Frequency: Once in a while Pt feels they are or have been: No (IVELISSE SCHAFER) Past Medical History Surgeries: Yes (hysterectomy 98,appy73) Respiratory: Yes COPD Cardiac: Yes Neurological: No Reproductive Disorders: No Gastrointestinal: No Musculoskeletal: Yes (herniated disks) Rheumatoid Arthritis Endocrine: No Psychosocial: No Blood Disorders: No (IVELISSE SCHAFER) Family Medical History Neoplasm G8 BROTHER Heart Disease, Cancer (IVELISSE SCHAFER) Physical Exam Vital Signs Vital Signs - First Documented 01/26/23 16:27 Pulse 87 Resp 16 B/P (MAP) 130/100 (110) Pulse Ox 96 O2 Delivery Room Air (KATLIN URENA MD) Vital Signs Capillary Refill : Less Than 3 Seconds (IVELISSE SCHAFER) Height, Weight, BMI Height: 5'7.00" Weight: 121lbs. 2.0oz. 54.700428km; 18.00 BMI Method:Stated General Appearance: WD/WN, no apparent distress HEENT: PERRL/EOMI, normal ENT inspection, TMs normal, pharynx normal Neck: non-tender, full range of motion, supple, normal inspection Cardiovascular: regular rate, rhythm, no edema, no gallop, no JVD Respiratory: chest non-tender, lungs clear, normal breath sounds, no respiratory distress, no accessory muscle use Gastrointestinal: normal bowel sounds, non tender, soft, no organomegaly, no pulsatile mass Back: normal inspection, no CVA tenderness, no vertebral tenderness Shoulder: ecchymosis, limited ROM (Decreased passive and active range of motion left shoulder), pain (Tenderness to palpate left proximal anterior shoulder, left distal clavicle), soft tissue tenderness (Soft tissue swelling of the left anterior shoulder), swelling Elbow/Forearm: pain, soft tissue tenderness, swelling (Swelling and bruising noted to the left humerus, left elbow, left anterior shoulder) Wrist: Yes normal inspection, Yes non-tender, Yes no evidence of injury, Yes normal ROM Hand: normal inspection, non-tender, no evidence of injury 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 She has had problems with more mild itching in the past, but it has become severe tonight. She has taken 3 doses of Benadryl without significant relief. She asks for advice. She denies any associated rash. I advised trying tramadol as an alternative and provided a prescription. See prescriptions below. (KATLIN URENA MD) Departure Communication (PCP) Patient with a mechanical fall on . Landed on her left shoulder. Denies hitting her head or loss of consciousness. GCS 15. Alert and orient x3. She has no cervical, thoracic or lumbar midline tenderness. She has no chest wall tenderness, shortness of breath or chest pain. She has significant bruising to the left upper arm. Concerning for proximal humeral fracture. X- ray shows comminuted displaced multipart fracture of the left proximal humerus. Humeral head is inferior subluxed relative to the glenoid. Patient took a dose of her oxycodone at home before arrival. She does have notable amount of ecchymosis to the left arm. 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 She does have some pain to the left elbow and mid humerus. X-ray of the mid humerus was unremarkable, left elbow x-ray was negative for fracture. Degenerative changes noted. Patient was placed in a shoulder immobilizer. No orthopedic on-call. Consulted [facility] Dr. Julián Del Castillo orthopedic surgeon who recommends shoulder immobilizer, sling and to follow-up early next week. Will likely need surgery. Provided pain medication. She has no other complaints. Return precautions were discussed with patient. Neuro exam unremarkable. No focal neural deficits. No further imaging at this time secondary to no current complaints or pain or evidence of trauma (IVELISSE SCHAFER) Impression Primary Impression: Shoulder fracture Disposition: 01 HOME, SELF-CARE Condition: Stable Departure-Patient Inst. Decision time for Depature: 17:31 (IVELISSE SCHAFER) Referrals: VIRGIE STOKES MD (PCP/Family) Primary Care Physician Patient Instructions: Shoulder Fracture Add. Discharge Instructions: Recommend following up with Dr. Del Castillo orthopedic surgery at [facility]. Number is [phone]. Provided pain medication as needed. Ice All discharge instructions reviewed with patient and/or family. Voiced understanding. Scripts Tramadol HCl (Tramadol HCl) 50 Mg Tablet 50 MG PO Q6H PRN for PAIN-MODERATE (5-7), #20 TAB May take with Tylenol (acetaminophen) up to 1000 mg every 6 hours. Prov: KATLIN URENA MD 01/27/23 Oxycodone HCl/Acetaminophen (Oxycodone-Acetaminophen 5-325) 5 Mg-325 Mg Tablet 1 EACH PO Q4H PRN for PAIN-SEVERE MDD 6, #10 TAB Prov: IVELISSE SCHAFER 01/26/23 ATTENDING PHYSICIAN NOTE: I WAS PHYSICALLY PRESENT ER PHYSICIAN, BUT I WAS NOT INVOLVED IN ANY DECISION MAKING OR ANY CARE OF THIS PATIENT, AND I AM NOT COLLABORATING PHYSICIAN. (SEKOU PALMA DO) IVELISSE SCHAFER Jan 26, 2023 16:42 KATLIN URENA MD Jan 27, 2023 02:28 SEKOU PALMA DO Jan 27, 2023 06:36
--- NOTE | 2023-01-26 17:02 | Diagnostic Imaging Report ---
EXAMINATION: Left shoulder radiographs, 3 views. COMPARISON: None. HISTORY: 67-year-old female, left shoulder pain. FINDINGS: There is a comminuted displaced multipart fracture of the left proximal humerus involving at least the humeral neck and greater tuberosity. There is question of lesser tuberosity fracture involvement as well. The humeral head is inferiorly subluxed relative to the glenoid. The acromioclavicular joint is intact. There are remote prior fracture deformities of left-sided ribs. There is sideplate and screw fixation hardware along the right clavicle. IMPRESSION: 1. Comminuted displaced multipart fracture of the left proximal humerus. 2. The humeral head is inferiorly subluxed relative to the glenoid. Dictated by: Dictated on workstation # [id number]
--- NOTE | 2023-01-26 17:22 | Diagnostic Imaging Report ---
INDICATION: Left arm pain, injured in fall 3 days prior to study. Left arm is bruised and swollen. COMPARISONS: None. FINDINGS: Three views of the left elbow show degenerative changes of the left elbow. There is some bony productive changes but no evidence of acute fracture or subluxation seen. IMPRESSION: Degenerative changes of the left elbow but no acute fracture or subluxation is seen. Dictated by: Dictated on workstation # [id number]
--- NOTE | 2023-01-26 17:31 | Diagnostic Imaging Report ---
INDICATION: Injured in fall, presents with left arm pain. COMPARISONS: None. FINDINGS: Two views of the left arm shows an impacted comminuted fracture involving the left humeral neck with the fracture line extending through the greater tuberosity. The humeral head appears well-seated within the left glenoid. Overlying soft tissue swelling is noted. IMPRESSION: Impacted, angulated and comminuted fracture involving the left humeral neck. Dictated by: Dictated on workstation # [id number]
[2023-01-26] MEDS ORDERED: OXYC1TAB11 PO (17:34)
[2023-01-26 17:45] VITALS: BP 125/89
[2023-01-27] MEDS ORDERED: TRAM50TA3 PO (02:25)
== END 2023-01-26 17:45 | disposition home or self-care (01) ==
LOC: EDUNIT# 16:19 → ER 16:21
DX: S42.202A Unspecified fracture of upper end of left humerus, initial encounter for closed fracture (principal); F17.210 Nicotine dependence, cigarettes, uncomplicated; W01.0XXA Fall on same level from slipping, tripping and stumbling without subsequent striking against object, initial encounter; Y93.01 Activity, walking, marching and hiking; Y92.009 Unspecified place in unspecified non-institutional (private) residence as the place of occurrence of the external cause
CPT/HCPCS: 73030; 73060; 73080

== ENCOUNTER → 2023-05-06 | Outpatient (CLI) | payer MEDICARE ==
[~2023-05-06] MED LIST changes: +TRAM50TA3 PO
--- NOTE | 2023-05-06 17:31 | Diagnostic Imaging Report ---
INDICATION: Arthritis, bilateral hand pain. AP, oblique, and lateral views of both hands are obtained. There is no previous study for comparison. FINDINGS: On the left side, there are diffuse degenerative changes throughout the interphalangeal joints, most prominent in the third and fourth PIP joints. There are diffuse degenerative changes throughout the MCP joints, most prominent of the second MCP joint. There is degenerative change of the first carpometacarpal joint and radiocarpal joint. There is no acute fracture. On the right side, there are degenerative changes throughout the interphalangeal joints of moderate severity with mild diffuse degenerative change of the MCP joints. There is mild degenerative change of the first carpometacarpal joint and radiocarpal joint. IMPRESSION: Degenerative changes of both hands as described above, worse on the left than on the right. No acute bony abnormality. Dictated by: Dictated on workstation # [id number]
== END ==
LOC: RAD 09:52
PROVIDERS: ATTEND Internal Medicine
DX: M19.042 Primary osteoarthritis, left hand (principal); M19.041 Primary osteoarthritis, right hand; M06.9 Rheumatoid arthritis, unspecified

== ENCOUNTER → 2023-07-16 | Outpatient (CLI) | payer MEDICARE ==
--- NOTE | 2023-07-16 13:48 | Diagnostic Imaging Report ---
INDICATION: Postmenopausal state COMPARISON: 03/16/2008 FINDINGS: AP Spine L2-L4: [BMD (g/cm2): 0.892] [T-Score: -2.6] [Z-Score: -0.5] [BMD Previous: 1.180] [BMD % Change: 24.4*] LT Hip Neck: [BMD (g/cm2): 0.675] [T-Score: -2.6] [Z-Score: -0.7] LT Hip Total: [BMD (g/cm2):0.729] [T-Score:-2.2] [Z-Score: -0.6] [BMD Previous: 0.778] [BMD % Change: -6.3*] RT Hip Neck: [BMD (g/cm2):0.762] [T-Score:-2.0] [Z-Score:-0.1] RT Hip Total: [BMD (g/cm2):0.737] [T-score:-2.1] [Z-Score:-0.5] [BMD Previous:-0.799] [BMD % Change:-7.8*] *Indicates significant change from prior examination based on 95% confidence level. World Health Organization criteria for BMD interpretation classify patients as Normal (T-score at or above -1.0), Osteopenic (T-score between -1.0 and -2.5) or Osteoporotic (T-score at or below -2.5). LIMITATIONS AND MODIFICATION: None. FRACTURE RISK (FRAX SCORE): The ten year probability of (%): Major Osteoporotic Fracture: [35.2] Hip Fracture: [18.7] IMPRESSION: 1. Osteoporosis. 2. Bone mineral density has decreased by a statistically significant amount, as detailed above. 3. See below National Osteoporosis Foundation guidelines on when to potentially initiate pharmacologic therapy. Based on the National Osteoporosis Foundation Guidelines, pharmacologic treatment should be initiated in any of the following, unless clinical conditions suggest otherwise: * Any patient with prior fragility fracture of the hip or vertebrae. A spine fracture indicates 5X risk for subsequent spine fracture and 2X risk for subsequent hip fracture. * Osteoporosis (T-score <-2.5). * Postmenopausal women and men age 50 and older with low bone mass/osteopenia (T-score between -1.0 and -2.5) by DXA and 10-year major osteoporotic fracture greater than 20% or a 10-year probability of hip fracture greater than 3%. These fracture risks are supplied above in the FRAX score, if applicable. * Clinician judgement and/or patient preferences may indicate treatment for people with 10-year fracture probabilities above or below these levels. Dictated by: Dictated on workstation # [id number]
== END ==
LOC: RAD 12:38
PROVIDERS: ATTEND Colon & Rectal Surgery
DX: M81.0 Age-related osteoporosis without current pathological fracture (principal); F17.210 Nicotine dependence, cigarettes, uncomplicated; M05.9 Rheumatoid arthritis with rheumatoid factor, unspecified; Z79.899 Other long term (current) drug therapy; Z79.52 Long term (current) use of systemic steroids
CPT/HCPCS: 77080